=== PATIENT | female | born 1990 | race Caucasian/White ===

== ENCOUNTER 2021-12-23 19:58 | Emergency (ER) | payer MEDICAID ==
[~2021-12-23] VITALS: Ht 154.9 cm; Wt 63.5 kg
--- NOTE | 2021-12-23 20:19 | NUR ---
Dr. Sutton at bedside for MSE.
--- NOTE | 2021-12-23 20:59 | NUR ---
Patient discharged to home in stable condition. Written and verbal after care instructions given. Patient verbalizes understanding of instructions. Stressed follow up or return to ER for worsening s/s. Pt out of ER with steady gait, no acute signs of distress, VSS, all belongings taken.
[2021-12-23 21:00] VITALS: BP 146/78
== END 2021-12-23 21:01 | disposition home or self-care (01) ==
LOC: ER 20:06
DX: S93.601A Unspecified sprain of right foot, initial encounter (principal); W18.41XA Slipping, tripping and stumbling without falling due to stepping on object, initial encounter; Y92.89 Other specified places as the place of occurrence of the external cause; R03.0 Elevated blood-pressure reading, without diagnosis of hypertension
CPT/HCPCS: 73630; A4663